=== PATIENT | female | born 1985 | race Caucasian/White ===

== ENCOUNTER 2022-05-12 11:14 | Outpatient (CLI) | payer BC, SELFPAY | END 2022-05-12 11:15 | disposition home or self-care (01) | LOC: LKVREF 11:15 | PROVIDERS: PCP Physician Assistant Medical; Visit Provider Physician Assistant Medical | DX: E03.9 Hypothyroidism, unspecified (principal) | CPT/HCPCS: 84443 ==

== ENCOUNTER 2023-01-07 11:58 | Outpatient (CLI) | payer OTHER, SELFPAY ==
[2023-01-07 23:03] LABS: Chlamydia DNA Amplified* NOT DETECTED (No Detected); GC DNA Amplified* NOT DETECTED (No Detected)
== END 2023-01-07 11:59 | disposition home or self-care (01) ==
LOC: LKVREF 11:58
PROVIDERS: PCP Physician Assistant Medical; Visit Provider Physician Assistant Medical
DX: Z00.00 Encounter for general adult medical examination without abnormal findings (principal); Z11.3 Encounter for screening for infections with a predominantly sexual mode of transmission
CPT/HCPCS: 87491; 87591

== ENCOUNTER 2023-10-26 13:48 | Outpatient (CLI) | payer OTHER, SELFPAY | END 2023-10-26 13:49 | disposition home or self-care (01) | LOC: NFLDREF 10-28 06:06 | PROVIDERS: PCP Physician Assistant Medical; Referring Provider Physician Assistant Medical; Visit Provider Nurse Practitioner Family | DX: N39.0 Urinary tract infection, site not specified (principal); R39.9 Unspecified symptoms and signs involving the genitourinary system | CPT/HCPCS: 87086; 87186 ==

== ENCOUNTER 2024-01-01 08:54 | Outpatient (CLI) | payer OTHER, SELFPAY | END 2024-01-01 08:55 | disposition home or self-care (01) | LOC: NFLDREF 01-03 03:53 | PROVIDERS: PCP Physician Assistant Medical; Referring Provider Physician Assistant Medical; Visit Provider Physician Assistant Medical | DX: Z00.00 Encounter for general adult medical examination without abnormal findings (principal); R53.83 Other fatigue; F52.8 Other sexual dysfunction not due to a substance or known physiological condition | CPT/HCPCS: 80048; 80061; 82306; 84146; 84439; 84443 ==

== ENCOUNTER 2024-02-19 08:55 | Outpatient (CLI) | payer OTHER, SELFPAY | END 2024-02-19 08:56 | disposition home or self-care (01) | LOC: NFLDREF 02-20 19:53 | PROVIDERS: PCP Physician Assistant Medical; Referring Provider Physician Assistant Medical; Visit Provider Physician Assistant Medical | DX: R79.89 Other specified abnormal findings of blood chemistry (principal) | CPT/HCPCS: 84439; 84443; 86376 ==

== ENCOUNTER 2024-06-14 10:38 | Outpatient (CLI) | payer OTHER, SELFPAY | END 2024-06-14 10:39 | disposition home or self-care (01) | LOC: NFLDREF 06-15 03:14 | PROVIDERS: PCP Physician Assistant Medical; Referring Provider Physician Assistant Medical; Visit Provider Physician Assistant Medical | DX: E03.9 Hypothyroidism, unspecified (principal) | CPT/HCPCS: 84443 ==